=== PATIENT | female | born 1990 | race Caucasian/White ===

== ENCOUNTER 2018-02-06 10:24 | Emergency (ER) | payer BC ==
[2018-02-06 10:45] VITALS: BMI 24.4
[2018-02-06 10:56] VITALS: TEMP 98.8; O2SAT 98
[2018-02-06] MEDS ORDERED: Sodium Chloride 0.9% 1,000 ML IV STA (10:59)
--- NOTE | 2018-02-06 11:04 | ED PDOC ---
Arrival/HPI - General Chief Complaint: Female Genitourinary Time Seen by Provider: 02/06/18 10:30 Historian: Patient - History of Present Illness Narrative History of Present Illness (Text): 02/06/18 11:02 27 y/o female, pmh including UTI, nkda, c/o burning urinary sensation with frequency/urgency x 3 days. Pt. stated that she was seen by her own pmd which she is on the bactrim with limited relief, been having bloody urine, no flank or abdominal pain, no nausea or vomiting, no fever or chills, no chest pain or shortness of breath, no other medical or psychological complaints. Past Medical History - Provider Review Nursing Documentation Reviewed: Yes - Infectious Disease Hx of Infectious Diseases: None - Tetanus Immunization Tetanus Immunization: Unknown - Past Medical History Past Medical History: No Previous - Cardiac Hx Cardiac Disorders: No - Pulmonary Hx Respiratory Disorders: No - Neurological Hx Neurological Disorder: No - HEENT Hx HEENT Disorder: No - Renal Hx Renal Disorder: No - Endocrine/Metabolic Hx Endocrine Disorders: No - Hematological/Oncological Hx Blood Disorders: No - Integumentary Hx Dermatological Disorder: No - Musculoskeletal/Rheumatological Hx Musculoskeletal Disorders: No - Gastrointestinal Hx Gastrointestinal Disorders: No - Genitourinary/Gynecological Hx Genitourinary Disorders: Yes Hx Urinary Tract Infection: Yes - Psychiatric Hx Psychophysiologic Disorder: No Hx Substance Use: No - Surgical History Other/Comment: Hernia - Anesthesia Hx Anesthesia: Yes - Suicidal Assessment Feels Threatened In Home Enviroment: No Family/Social History - Physician Review Nursing Documentation Reviewed: Yes Family/Social History: Unknown Family HX Smoking Status: Never Smoked Hx Alcohol Use: No Hx Substance Use: No Allergies/Home Meds Allergies/Adverse Reactions: Allergies No Known Allergies Allergy (Verified 02/06/18 10:45) Home Medications: Home Meds Medication Instructions Recorded Confirmed Phenazopyridine [Pyridium] 200 mg PO TID 02/06/18 02/06/18 Sulfamethoxazole/Trimethoprim 1 tab PO BID 02/06/18 02/06/18 [Bactrim 400-80 mg Tablet] Review of Systems - Review of Systems Constitutional: absent: Fatigue, Fevers Eyes: absent: Vision Changes ENT: absent: Hearing Changes Respiratory: absent: SOB, Cough Cardiovascular: absent: Chest Pain Gastrointestinal: absent: Abdominal Pain, Nausea, Vomiting Genitourinary Female: Dysuria, Frequency, Hematuria. absent: Vaginal Bleeding, Vaginal Discharge Skin: absent: Rash, Pruritis Neurological: absent: Headache, Dizziness Psychiatric: absent: Anxiety, Depression Physical Exam Vital Signs Reviewed: Yes Vital Signs Temp Pulse Resp BP Pulse Ox 02/06/18 10:40 98.8 F 75 17 123/85 98 Temperature: Afebrile Blood Pressure: Normal Pulse: Regular Respiratory Rate: Normal Appearance: Positive for: Well-Appearing, Non-Toxic, Comfortable Pain Distress: Moderate Mental Status: Positive for: Alert and Oriented X 3 - Systems Exam Head: Present: Atraumatic, Normocephalic Pupils: Present: PERRL Extroacular Muscles: Present: EOMI Conjunctiva: Present: Normal Mouth: Present: Moist Mucous Membranes Neck: Present: Normal Range of Motion Respiratory/Chest: Present: Clear to Auscultation, Good Air Exchange. No: Respiratory Distress, Accessory Muscle Use Cardiovascular: Present: Regular Rate and Rhythm, Normal S1, S2. No: Murmurs Abdomen: Present: Tenderness (mild suprapubic tenderness, no cva tenderness, no abdominal tendernes or guarding. ). No: Distention, Peritoneal Signs, Rebound, Guarding Back: Present: Normal Inspection Upper Extremity: Present: Normal Inspection. No: Cyanosis, Edema Lower Extremity: Present: Normal Inspection. No: Edema Neurological: Present: GCS=15, CN II-XII Intact, Speech Normal, Motor Func Grossly Intact, Gait Normal, Memory Normal Skin: Present: Warm, Dry, Normal Color. No: Rashes Psychiatric: Present: Alert, Oriented x 3, Normal Insight, Normal Concentration Medical Decision Making ED Course and Treatment: 02/06/18 11:04 -Labs/ua with urine culture -IVF/toradol -Observe and reassess 02/06/18 12:33 -Urine hcg is negative for -UA show +UTI with yeast, diflucan ordered -Labs show no acute findings -IV rocephine and diflucant ordered, feeling much better, will discharge home. -Discharge home with macrobid, stay hydrated, bed rest, follow up with your own pmd and and urologist within 1 week for repeat urinanalysis testing, return to the ER for any new or worsening signs or symptoms. - Lab Interpretations Lab Results: 02/06/18 11:30 02/06/18 11:30 Lab Results 02/06/18 11:30: WBC 8.0, RBC 4.60, Hgb 13.7, Hct 40.6, MCV 88.3, MCH 29.8, MCHC 33.7, RDW 12.3, Plt Count 206, MPV 11.7 H, Gran % 68.1 H, Lymph % (Auto) 22.8, [place] % (Auto) 5.0, Eos % (Auto) 3.7, Baso % (Auto) 0.4, Gran # 5.47, Lymph # ( Auto) 1.8, [place] # (Auto) 0.4, Eos # (Auto) 0.3, Baso # (Auto) 0.03 02/06/18 11:30: Sodium 141, Potassium 4.0, Chloride 107, Carbon Dioxide 21, Anion Gap 17, BUN 6 L, Creatinine 0.7, Est GFR ( Amer) > 60, Est GFR (Non -Af Amer) > 60, Random Glucose 87, Calcium 8.7, Total Bilirubin 0.6, AST 25, ALT 37, Alkaline Phosphatase 41, Total Protein 7.5, Albumin 4.4, Globulin 3.1, Albumin/Globulin Ratio 1.4 02/06/18 10:40: Urine Color Yellow, Urine Appearance Clear, Urine pH 6.5, Ur Specific [place] 1.020, Urine Protein Trace H, Urine Glucose (UA) Negative, Urine Ketones Negative, Urine Blood Large H, Urine Nitrate Negative, Urine Bilirubin Small H, Urine Urobilinogen 0.2, Ur Leukocyte Esterase Trace H, Urine RBC 20 - 25, Urine WBC 2 - 5, Ur Epithelial Cells 6 - 8, Urine Bacteria Many, Urine Other Uyeast - Medication Orders Current Medication Orders: Ceftriaxone Sodium (Rocephin 1 Gram Ivpb) 1 gm in 100 mls @ 200 mls/hr IVPB STAT STA PRN Reason: Protocol Stop: 02/06/18 12:26 Discontinued Medications Fluconazole (Diflucan) 150 mg PO STAT STA PRN Reason: Protocol Stop: 02/06/18 11:59 Sodium Chloride (Sodium Chloride 0.9%) 1,000 mls @ 999 mls/hr IV .Q1H1M STA Stop: 02/06/18 11:59 Last Admin: 02/06/18 11:34 Dose: 999 mls/hr eMAR Start Stop Document 02/06/18 11:34 KARISHMA (Rec: 02/06/18 11:34 KARISHMA [id number]) Intravenous Solution Start Date 02/06/18 Start Time 11:34 End Date 02/06/18 End time 12:34 Total Infusion Time 60 Ketorolac Tromethamine (Toradol) 30 mg IVP STAT STA Stop: 02/06/18 11:01 Last Admin: 02/06/18 11:33 Dose: 30 mg MAR Pain Assessment Document 02/06/18 11:33 KARISHMA (Rec: 02/06/18 11:34 KARISHMA [id number]) Pain Reassessment Is this a pain reassessment? Yes Presence of Pain Presence of Pain Yes Pain Scale Used Pain Scale Used Numeric Location Upper or Lower Lower Description Description Cramping IVP Administration Document 02/06/18 11:33 KARISHMA (Rec: 02/06/18 11:34 KARISHMA [id number]) Charges for Administration # of IVP Administrations 1 - PA / PYROM[employer] MECHANIC / Resident Statement MD/DO has reviewed & agrees with the documentation as recorded. Disposition/Present on Arrival - Present on Arrival Any Indicators Present on Arrival: No History of DVT/PE: No History of Uncontrolled Diabetes: No Urinary Catheter: No History of Decub. Ulcer: No History Surgical Site Infection Following: None - Disposition Have Diagnosis and Disposition been Completed?: Yes Diagnosis: Yeast infection, UTI (urinary tract infection) Disposition: HOME/ ROUTINE Disposition Time: 11:04 Patient Plan: Discharge Condition: IMPROVED Discharge Instructions (ExitCare): Yeast Infection (DC) Additional Instructions: -Discharge home with macrobid, stay hydrated, bed rest, follow up with your own pmd and and urologist within 1 week for repeat urinanalysis testing, return to the ER for any new or worsening signs or symptoms. Prescriptions: Nitrofurantoin Macrocrystals [Macrobid] 100 mg PO BID #14 cap Referrals: Lamberto Bonilla MD [Primary Care Provider] - Follow up with primary Rafa Iniguez MD [Staff Provider] - Follow up with primary Forms: WORK NOTE
[2018-02-06 11:26] LABS: PH,URINE 6.5 (4.7-8.0); URINE BILIRUBIN SMALL (NEGATIVE); URINE BLOOD LARGE (NEGATIVE); URINE GLUCOSE (UA) NEGATIVE (NEGATIVE); URINE LEUKOCYTE ESTERASE TRACE Leu/uL (NEGATIVE); URINE PROTEIN TRACE mg/dL (<30 mg/dL); URINE UROBILINOGEN 0.2 E.U./dL (<1 E.U./dL)
[2018-02-06 11:38] LABS: URINE APPEARANCE CLEAR (CLEAR); URINE COLOR YELLOW (YELLOW)
[2018-02-06 11:45] LABS: URINE BACTERIA MANY (NEG); URINE RBC 20 - 25 /hpf (0-2)
[2018-02-06 11:47] LABS: BASO # 0.03 K/mm3 (0.0-2.0); BASO % 0.4 % (0.0-3.0); EOS # 0.3 (0.0-0.7); EOS % 3.7 % (1.5-5.0); GRAN # 5.47 (1.4-6.5); GRAN % 68.1 % (50.0-68.0); HEMOGLOBIN 13.7 g/dL (12.0-16.0); LYMPH # 1.8 (1.2-3.4); LYMPH % 22.8 % (22.0-35.0); MEAN CELL VOLUME 88.3 fl (80.0-105.0); MEAN CORPUSCULAR HEMOGLOBIN 29.8 pg (25.0-35.0); MEAN CORPUSCULAR HGB CONC 33.7 g/dl (31.0-37.0); MEAN PLATELET VOLUME 11.7 fl (7.0-11.0); MONO # 0.4 (0.1-0.6); RBC 4.6 10^6/uL (3.5-6.1); RED CELL DISTRIBUTION WIDTH 12.3 % (11.5-14.5)
[2018-02-06] MEDS ORDERED: cefTRIAXone 1 gm 1 GM/100 ML BAG IVPB STA (11:57)
[2018-02-06 12:03] LABS: ALB/GLOB RATIO 1.4 (1.1-1.8); ALBUMIN 4.4 g/dL (3.0-4.8); ALT/SGPT 37 U/L (7-56); AST/SGOT 25 U/L (14-36); BLOOD UREA NITROGEN 6 mg/dL (7-21); CALCIUM 8.7 mg/dL (8.4-10.5); GFR AFRICAN-AMERICAN > 60; GFR NON-AFRICAN AMERICAN > 60
[2018-02-06 12:58] VITALS: BP 117/64; PULSE 68; RESP 16
== END 2018-02-06 12:56 | disposition home or self-care (01) ==
LOC: ED 10:24
DX: N39.0 Urinary tract infection, site not specified (principal); B37.9 Candidiasis, unspecified
CPT/HCPCS: 80053; 81001; 85025; 87086; 96361; 96365; 96375; 99282; J0696; J1885; J7030